=== PATIENT | male | born 1940 | race Caucasian/White ===

== ENCOUNTER 2021-03-08 14:01 | Inpatient (IN) | payer MEDICARE ==
[2021-03-08 15:06] LABS: INR 1.14; PROTHROMBIN TIME 14.8 seconds (11.9-14.5)
[2021-03-08 15:13] LABS: BASOPHILS # (AUTO) 0.1 (0.0-0.1); BASOPHILS % 0.4 % (0.0-1.0); EOSINOPHILS # (AUTO) 0.6 (0.0-0.4); EOSINOPHILS % 4.5 % (0.0-6.0); HEMATOCRIT 31.4 % (38.2-49.6); HEMOGLOBIN 9.5 g/dL (14.0-18.0); LYMPHOCYTES % 7.6 % (18.0-39.1); MEAN CORPUSCULAR HEMOGLOBIN 29.1 pg (28-32); MEAN CORPUSCULAR HGB CONC 30.3 g/dL (31-35); MEAN CORPUSCULAR VOLUME 96.3 fL (81-99); MONOCYTES # (AUTO) 0.6 (0.2-0.8); MONOCYTES % 4.8 % (4.4-11.3); NEUTROPHILS # (AUTO) 10.5 (2.1-6.9); PLATELET COUNT 184 x10e3/uL (140-360); RED BLOOD COUNT 3.26 x10e6/uL (4.3-5.7); RED CELL DISTRIBUTION WIDTH 16.3 % (11.7-14.4)
[2021-03-08 15:16] LABS: ALBUMIN 2.5 g/dL (3.5-5.0); ALBUMIN/GLOBULIN RATIO 0.8 (0.8-2.0); ANION GAP 13.8 mmol/L (8-16); CALCIUM 7.5 mg/dL (8.4-10.2); CREATININE, SERUM 4.48 mg/dL (0.72-1.25)
[2021-03-08 15:18] LABS: POTASSIUM 2.8 mmol/L (3.5-5.1)
[2021-03-08 20:35] LABS: CREATINE KINASE MB 1.2 ng/mL (0-5.0)
[2021-03-09] VITALS (12 sets, daily range): BP systolic 117–130; BP diastolic 56–68
[2021-03-09] MEDS ORDERED: POTASSIUM CHLORIDE 20MEQ/100ML 100 ML IV ONE (00:15)
[2021-03-09 07:15] LABS: ALBUMIN 2.3 g/dL (3.5-5.0); ALBUMIN/GLOBULIN RATIO 0.8 (0.8-2.0); CALCIUM 7.2 mg/dL (8.4-10.2)
[2021-03-09 07:31] LABS: CREATINE KINASE MB 1.1 ng/mL (0-5.0)
[2021-03-09] MEDS ORDERED: SODIUM CHLORIDE 0.9% 1000ML 2,000 ML ONE (09:03)
[2021-03-09 09:38] LABS: BASOPHILS % 0.4 % (0.0-1.0); EOSINOPHILS # (AUTO) 0.7 (0.0-0.4); EOSINOPHILS % 6.1 % (0.0-6.0); HEMATOCRIT 31.6 % (38.2-49.6); HEMOGLOBIN 9.7 g/dL (14.0-18.0); LYMPHOCYTES # (AUTO) 0.8 (1.0-3.2); LYMPHOCYTES % 6.6 % (18.0-39.1); MEAN CORPUSCULAR HEMOGLOBIN 28.9 pg (28-32); MEAN CORPUSCULAR HGB CONC 30.7 g/dL (31-35); MONOCYTES # (AUTO) 0.6 (0.2-0.8); MONOCYTES % 5.2 % (4.4-11.3); NEUTROPHILS # (AUTO) 9.2 (2.1-6.9); PLATELET COUNT 178 x10e3/uL (140-360); RED BLOOD COUNT 3.36 x10e6/uL (4.3-5.7); RED CELL DISTRIBUTION WIDTH 16.2 % (11.7-14.4)
[2021-03-09] MEDS ORDERED: MIDODRINE HCL 5 MG TABLET PO ONE (11:30)
[2021-03-09 14:46] LABS: CREATINE KINASE MB 1.2 ng/mL (0-5.0)
[2021-03-09] MEDS: CEFTRIAXONE 1 GM in SODIUM CHLORIDE 0.9% 50ML 50 ML IV SCH (16:56)
[2021-03-09 17:28] LABS: BODY FLUID APPEARANCE SL.CLOUDY; BODY FLUID COLOR YELLOW; BODY FLUID TYPE PLEURAL; RBC,BODY FLUID < 2000 cells/uL; WBC,BODY FLUID 300 cells/uL
[2021-03-09 18:33] LABS: EOSINOPHILS,BODY FLUID 6 %; LYMPHOCYTES,BODY FLUID 22 %; MONO/MACROPHG,BODY FLUID 32 %; NEUTROPHILS,BODY FLUID 29 %; OTHER CELLS,BODY FLUID 11 %
[2021-03-10] VITALS (8 sets, daily range): BP systolic 118–141; BP diastolic 44–77
[2021-03-10 06:26] LABS: BASOPHILS % 0.4 % (0.0-1.0); EOSINOPHILS # (AUTO) 0.6 (0.0-0.4); HEMATOCRIT 27.5 % (38.2-49.6); HEMOGLOBIN 8.5 g/dL (14.0-18.0); LYMPHOCYTES % 9.4 % (18.0-39.1); MEAN CORPUSCULAR HGB CONC 30.9 g/dL (31-35); MEAN CORPUSCULAR VOLUME 93.9 fL (81-99); MONOCYTES # (AUTO) 0.9 (0.2-0.8); MONOCYTES % 7.7 % (4.4-11.3); NEUTROPHILS # (AUTO) 8.5 (2.1-6.9); NEUTROPHILS % 76.9 % (38.7-80.0); PLATELET COUNT 182 x10e3/uL (140-360); RED BLOOD COUNT 2.93 x10e6/uL (4.3-5.7); RED CELL DISTRIBUTION WIDTH 15.8 % (11.7-14.4)
[2021-03-10 06:42] LABS: ANION GAP 12.1 mmol/L (8-16); CREATININE, SERUM 3.19 mg/dL (0.72-1.25); POTASSIUM 3.1 mmol/L (3.5-5.1)
[2021-03-10 06:55] LABS: CALCIUM 6.8 mg/dL (8.4-10.2)
[2021-03-10] MEDS: CEFTRIAXONE 1 GM in SODIUM CHLORIDE 0.9% 50ML 50 ML IV SCH (09:08)
[2021-03-10 11:15] LABS: % IRON SATURATION 18 % (15-50); IRON 23 ug/dL (65-175); TOTAL IRON BINDING CAPACITY 129 ug/dL (261-478); TRANSFERRIN 92 mg/dL (174-364)
[2021-03-10] MEDS: ALBUTEROL/IPRATROPIUM 3 ML NEB NEB SCH ×2 (13:55→18:56)
[2021-03-10] MEDS: BALSAM PERU/CASTOR OIL 60 GM OINT...G. TP SCH (16:12)
[2021-03-10] MEDS ORDERED: POTASSIUM CHLORIDE 20 MEQ TAB CR PO STA ×2 (18:06→22:03)
[2021-03-10] MEDS ORDERED: CALCIUM GLUCONATE 10% INJ 4.65 MEQ in SODIUM CHLORIDE 0.9% 50ML 50 ML IV ONE ×2 (18:15→22:15)
[2021-03-10] MEDS ORDERED: POTASSIUM CHLORIDE 20 MEQ TAB CR PO ONE (22:09)
[2021-03-10] MEDS ORDERED: CALCIUM GLUCONATE 10% INJ 0.465 MEQ/ML VIAL ONE (22:25)
[2021-03-10] MEDS ORDERED: SODIUM CHLORIDE 0.9% 50ML 50 ML ONE (22:25)
[2021-03-11] VITALS (10 sets, daily range): BP systolic 105–149; BP diastolic 44–61
[2021-03-11] MEDS: ALBUTEROL/IPRATROPIUM 3 ML NEB NEB SCH ×5 (03:55→19:42)
[2021-03-11 06:41] LABS: BASOPHILS % 0.2 % (0.0-1.0); EOSINOPHILS # (AUTO) 0.4 (0.0-0.4); EOSINOPHILS % 4.1 % (0.0-6.0); HEMATOCRIT 29.3 % (38.2-49.6); HEMOGLOBIN 9.3 g/dL (14.0-18.0); LYMPHOCYTES # (AUTO) 0.8 (1.0-3.2); LYMPHOCYTES % 7.6 % (18.0-39.1); MEAN CORPUSCULAR HEMOGLOBIN 30.3 pg (28-32); MEAN CORPUSCULAR HGB CONC 31.7 g/dL (31-35); MEAN CORPUSCULAR VOLUME 95.4 fL (81-99); MONOCYTES # (AUTO) 0.8 (0.2-0.8); MONOCYTES % 8.4 % (4.4-11.3); NEUTROPHILS # (AUTO) 7.9 (2.1-6.9); PLATELET COUNT 144 x10e3/uL (140-360); RED BLOOD COUNT 3.07 x10e6/uL (4.3-5.7); RED CELL DISTRIBUTION WIDTH 15.9 % (11.7-14.4)
[2021-03-11 07:39] LABS: ANION GAP 13.1 mmol/L (8-16); CALCIUM 7.2 mg/dL (8.4-10.2); CREATININE, SERUM 4.26 mg/dL (0.72-1.25); POTASSIUM 3.1 mmol/L (3.5-5.1)
[2021-03-11] MEDS: BALSAM PERU/CASTOR OIL 60 GM OINT...G. TP SCH (09:31)
[2021-03-11] MEDS: CEFTRIAXONE 1 GM in SODIUM CHLORIDE 0.9% 50ML 50 ML IV SCH (09:32)
[2021-03-11] MEDS ORDERED: SODIUM CHLORIDE 0.9% 250ML 250 ML ONE (09:50)
[2021-03-11] MEDS ORDERED: POTASSIUM CHLORIDE 10MEQ EA PO ONE (18:30)
[2021-03-12] VITALS (9 sets, daily range): BP systolic 111–146; BP diastolic 51–75
[2021-03-12] MEDS: ALBUTEROL/IPRATROPIUM 3 ML NEB NEB SCH ×5 (00:48→21:00)
[2021-03-12 06:19] LABS: ANION GAP 13.5 mmol/L (8-16); CREATININE, SERUM 5.19 mg/dL (0.72-1.25); POTASSIUM 3.5 mmol/L (3.5-5.1)
[2021-03-12 06:22] LABS: CALCIUM 6.9 mg/dL (8.4-10.2)
[2021-03-12] MEDS ORDERED: CALCIUM GLUCONATE 10% INJ 4.65 MEQ in SODIUM CHLORIDE 0.9% 50ML 50 ML IV ONE (11:00)
[2021-03-12] MEDS: BALSAM PERU/CASTOR OIL 60 GM OINT...G. TP SCH (12:20)
[2021-03-12] MEDS: CEFTRIAXONE 1 GM in SODIUM CHLORIDE 0.9% 50ML 50 ML IV SCH (12:49)
[2021-03-12 20:32] LABS: BODY FLUID APPEARANCE SL.CLOUDY; BODY FLUID COLOR YELLOW; BODY FLUID TYPE PLEURAL
[2021-03-12 20:33] LABS: RBC,BODY FLUID < 2000 cells/uL; WBC,BODY FLUID 313 cells/uL
[2021-03-12 21:37] LABS: EOSINOPHILS,BODY FLUID 13 %; LYMPHOCYTES,BODY FLUID 49 %; MONO/MACROPHG,BODY FLUID 22 %; NEUTROPHILS,BODY FLUID 16 %
[2021-03-12] MEDS ORDERED: MIRTAZAPINE7.5 MG PO (23:15)
[2021-03-12] MEDS ORDERED: POTASSIUM CHLO10 ME1 PO (23:15)
[2021-03-12] MEDS ORDERED: DOCUSATE SODIU100 MG PO (23:15)
[2021-03-12] MEDS ORDERED: ULTRAM50 MG PO (23:15)
[2021-03-12] MEDS ORDERED: TYLENOL325 MG PO (23:15)
[2021-03-12] MEDS ORDERED: CALCIUM 600 +1 EACH (23:15)
[2021-03-12] MEDS ORDERED: HYDRALAZINE HCL50 MG PO (23:15)
[2021-03-12] MEDS ORDERED: ATORVASTATIN CA20 MG PO (23:15)
[2021-03-12] MEDS ORDERED: ACIDOPHILUS CA1 EAC1 (23:15)
[2021-03-12] MEDS ORDERED: LANTUS 3ML100 UNITS/ (23:15)
[2021-03-12] MEDS ORDERED: ELIQUIS2.5 MG PO (23:15)
[2021-03-12] MEDS ORDERED: TUMS300 MG (23:15)
[2021-03-12] MEDS ORDERED: LISINOPRIL10 MG PO (23:15)
[2021-03-12] MEDS ORDERED: DORZOLAMIDE-TIM10 ML OP (23:15)
[2021-03-12] MEDS ORDERED: MIDODRINE HCL5 MG PO (23:15)
[2021-03-12] MEDS ORDERED: FLONASE ALLERG9.9 ML INH (23:15)
[2021-03-12] MEDS ORDERED: SYNTHROID100 MCG PO (23:15)
[2021-03-12] MEDS ORDERED: BENEPROTEIN1 EACH (23:15)
[2021-03-12] MEDS ORDERED: LACTULOSE20 GM/30 M PO (23:15)
[2021-03-12] MEDS ORDERED: ARTIFICIAL TEAR15 ML OU (23:15)
[2021-03-12] MEDS ORDERED: TIMOPTIC 0.25%1 EACH OS (23:15)
[2021-03-12] MEDS ORDERED: RENAL-VITE TAB0.8 MG (23:15)
[2021-03-12] MEDS ORDERED: FLOMAX0.4 MG PO (23:15)
[2021-03-12] MEDS ORDERED: TRADJENTA5 MG (23:17)
[2021-03-12] MEDS ORDERED: LIDOCAINE OINTMENT (23:32)
[2021-03-12] MEDS ORDERED: [UNRECOGNIZED DRUG - OTHER] (23:32)
[2021-03-12] MEDS ORDERED: HUMALOG (23:32)
[2021-03-12] MEDS ORDERED: PROTEIN SUPPLEMENT (23:32)
[2021-03-13] VITALS: BP 95/60
[2021-03-13] MEDS: ACETAMINOPHEN 325 MG TAB PO PRN (00:49)
[2021-03-13] MEDS: ALBUTEROL/IPRATROPIUM 3 ML NEB NEB SCH ×4 (01:00→19:08)
[2021-03-13] MEDS ORDERED: LIQUACEL LIQUI960 ML (01:31)
[2021-03-13] MEDS ORDERED: RENA-VITE TABL0.8 MG (02:44)
[2021-03-13] MEDS ORDERED: GLUCAGON EMERGEN1 M1 (02:44)
[2021-03-13 04:00] VITALS: BP 102/60
[2021-03-13 08:54] VITALS: BP 112/64
[2021-03-13 09:18] LABS: ANION GAP 11.5 mmol/L (8-16); CALCIUM 7.1 mg/dL (8.4-10.2); CREATININE, SERUM 3.24 mg/dL (0.72-1.25); POTASSIUM 3.5 mmol/L (3.5-5.1)
[2021-03-13] MEDS: BALSAM PERU/CASTOR OIL 60 GM OINT...G. TP SCH (09:25)
[2021-03-13] MEDS: HEPARIN SOD (PORCINE) 5,000 UNIT/ML VIAL SC SCH ×2 (10:50→20:26)
[2021-03-13] MEDS: CEFTRIAXONE 1 GM in SODIUM CHLORIDE 0.9% 50ML 50 ML IV SCH (10:50)
[2021-03-13] MEDS ORDERED: ALBUTEROL/IPRATROPIUM 3 ML NEB ONE (19:06)
[2021-03-13 19:40] VITALS: BP 108/66
[2021-03-13 23:26] VITALS: BP 108/66
[2021-03-14 00:32] VITALS: BP 142/79
[2021-03-14] MEDS: ALBUTEROL/IPRATROPIUM 3 ML NEB NEB SCH ×4 (01:10→19:50)
[2021-03-14 04:00] VITALS: BP 108/73
[2021-03-14 06:56] LABS: ANION GAP 15.5 mmol/L (8-16); CALCIUM 7.2 mg/dL (8.4-10.2); CREATININE, SERUM 4.38 mg/dL (0.72-1.25); POTASSIUM 3.5 mmol/L (3.5-5.1)
[2021-03-14 08:00] VITALS: BP 117/71
[2021-03-14] MEDS ORDERED: IRON SUCROSE 100 MG in SODIUM CHLORIDE 0.9% 100 ML 100 ML IV ONE (08:00)
[2021-03-14] MEDS: CEFTRIAXONE 1 GM in SODIUM CHLORIDE 0.9% 50ML 50 ML IV SCH (09:12)
[2021-03-14] MEDS: BALSAM PERU/CASTOR OIL 60 GM OINT...G. TP SCH (09:15)
[2021-03-14] MEDS: HEPARIN SOD (PORCINE) 5,000 UNIT/ML VIAL SC SCH (09:15)
[2021-03-14] MEDS ORDERED: EPOETIN ALFA-EPBX 10,000 UNIT/ML VIAL SC ONE (10:00)
[2021-03-14 11:30] VITALS: BP 118/59
[2021-03-14] MEDS ORDERED: SODIUM CHLORIDE 0.9% 1000ML 1,000 ML ONE (13:35)
[2021-03-14 16:00] VITALS: BP 103/60
[2021-03-14] MEDS ORDERED: APIXAB 2.5 MG TABLET PO SCH (17:00)
[2021-03-14 20:13] VITALS: BP 122/43
[2021-03-14] MEDS: ATORVASTATIN 20 MG TAB PO SCH (20:45)
[2021-03-15] VITALS (9 sets, daily range): BP systolic 107–130; BP diastolic 52–68
[2021-03-15] MEDS: ALBUTEROL/IPRATROPIUM 3 ML NEB NEB SCH ×6 (01:30→20:00)
[2021-03-15] MEDS: ACETAMINOPHEN 325 MG TAB PO PRN (02:36)
[2021-03-15 05:26] LABS: BASOPHILS % 0.4 % (0.0-1.0); EOSINOPHILS # (AUTO) 0.5 (0.0-0.4); LYMPHOCYTES # (AUTO) 0.8 (1.0-3.2); LYMPHOCYTES % 10.3 % (18.0-39.1); MEAN CORPUSCULAR HEMOGLOBIN 28.8 pg (28-32); MEAN CORPUSCULAR VOLUME 95.8 fL (81-99); MONOCYTES # (AUTO) 0.7 (0.2-0.8); MONOCYTES % 9.3 % (4.4-11.3); NEUTROPHILS # (AUTO) 5.3 (2.1-6.9); NEUTROPHILS % 72.5 % (38.7-80.0); PLATELET COUNT 137 x10e3/uL (140-360); RED BLOOD COUNT 3.13 x10e6/uL (4.3-5.7); RED CELL DISTRIBUTION WIDTH 15.5 % (11.7-14.4)
[2021-03-15] MEDS: LEVOTHYROXINE SODIUM 100 MCG TAB PO SCH (05:33)
[2021-03-15 05:46] LABS: ALBUMIN 2.2 g/dL (3.5-5.0); ALBUMIN/GLOBULIN RATIO 0.6 (0.8-2.0); ANION GAP 12.9 mmol/L (8-16); CALCIUM 7.2 mg/dL (8.4-10.2); CHOL/HDL RATIO 3.5 (3.9-4.7); CREATININE, SERUM 3.27 mg/dL (0.72-1.25)
[2021-03-15 05:48] LABS: POTASSIUM 2.9 mmol/L (3.5-5.1)
[2021-03-15 06:12] LABS: THYROID STIMULATING HORMONE 0.42 uIU/mL (0.350-4.940)
[2021-03-15] MEDS ORDERED: POTASSIUM CHLORIDE 20MEQ/100ML 200 ML IV ONE ×2 (06:15→06:45)
[2021-03-15] MEDS ORDERED: SODIUM CHLORIDE 0.9% 1000ML 1,000 ML ONE (07:32)
[2021-03-15] MEDS: BALSAM PERU/CASTOR OIL 60 GM OINT...G. TP SCH (11:17)
[2021-03-15] MEDS: CEFTRIAXONE 1 GM in SODIUM CHLORIDE 0.9% 50ML 50 ML IV SCH (11:17)
[2021-03-15] MEDS: ATORVASTATIN 20 MG TAB PO SCH (22:08)
[2021-03-16] VITALS: BP 125/58
[2021-03-16] MEDS: ALBUTEROL/IPRATROPIUM 3 ML NEB NEB SCH ×6 (01:20→18:50)
[2021-03-16 04:00] VITALS: BP 96/60
[2021-03-16 04:54] LABS: BASOPHILS % 0.6 % (0.0-1.0); EOSINOPHILS # (AUTO) 0.5 (0.0-0.4); EOSINOPHILS % 6.7 % (0.0-6.0); HEMATOCRIT 28.8 % (38.2-49.6); HEMOGLOBIN 8.6 g/dL (14.0-18.0); LYMPHOCYTES # (AUTO) 0.8 (1.0-3.2); LYMPHOCYTES % 11.6 % (18.0-39.1); MEAN CORPUSCULAR HEMOGLOBIN 28.9 pg (28-32); MEAN CORPUSCULAR HGB CONC 29.9 g/dL (31-35); MEAN CORPUSCULAR VOLUME 96.6 fL (81-99); MONOCYTES # (AUTO) 0.6 (0.2-0.8); NEUTROPHILS # (AUTO) 5.3 (2.1-6.9); NEUTROPHILS % 72.3 % (38.7-80.0); PLATELET COUNT 154 x10e3/uL (140-360); RED BLOOD COUNT 2.98 x10e6/uL (4.3-5.7)
[2021-03-16 05:20] LABS: ANION GAP 13.8 mmol/L (8-16); CALCIUM 7.2 mg/dL (8.4-10.2); CREATININE, SERUM 4.34 mg/dL (0.72-1.25)
[2021-03-16 05:27] LABS: POTASSIUM 2.8 mmol/L (3.5-5.1)
[2021-03-16] MEDS: POTASSIUM CHLORIDE 20MEQ/100ML 100 ML IV SCH ×2 (05:59→11:44)
[2021-03-16] MEDS: LEVOTHYROXINE SODIUM 100 MCG TAB PO SCH (06:05)
[2021-03-16 08:53] VITALS: BP 123/52
[2021-03-16] MEDS ORDERED: SODIUM CHLORIDE 0.9% 1000ML 1,000 ML ONE (09:37)
[2021-03-16] MEDS ORDERED: SODIUM CHLORIDE 0.9% 1000ML 2,000 ML IV PRN (10:00)
[2021-03-16] MEDS ORDERED: LIDOCAINE HCL 2% JELLY 5 ML TUBE ONE (10:50)
[2021-03-16] MEDS ORDERED: LIDOCAINE HCL 4% 50 ML BTL ONE (10:50)
[2021-03-16] MEDS: BALSAM PERU/CASTOR OIL 60 GM OINT...G. TP SCH (11:45)
[2021-03-16 11:54] VITALS: BP 128/57
[2021-03-16] MEDS ORDERED: EPOETIN ALFA-EPBX 10,000 UNIT/ML VIAL SC ONE ×2 (12:00→15:15)
[2021-03-16] MEDS ORDERED: IRON SUCROSE 100 MG in SODIUM CHLORIDE 0.9% 100 ML 100 ML IV ONE ×2 (12:00→15:15)
[2021-03-16] MEDS: ACETAMINOPHEN 325 MG TAB PO PRN (13:40)
[2021-03-16] MEDS: CEFTRIAXONE 1 GM in SODIUM CHLORIDE 0.9% 50ML 50 ML IV SCH (14:30)
[2021-03-16 17:05] VITALS: BP 117/54
[2021-03-16] MEDS: APIXAB 2.5 MG TABLET PO SCH (17:30)
[2021-03-16 20:00] VITALS: BP 124/98
[2021-03-16] MEDS: ATORVASTATIN 20 MG TAB PO SCH (21:17)
[2021-03-17] VITALS (8 sets, daily range): BP systolic 117–149; BP diastolic 51–91
[2021-03-17] MEDS: ALBUTEROL/IPRATROPIUM 3 ML NEB NEB SCH ×4 (00:10→19:00)
[2021-03-17] MEDS: LEVOTHYROXINE SODIUM 100 MCG TAB PO SCH (06:13)
[2021-03-17 06:40] LABS: BASOPHILS % 0.6 % (0.0-1.0); EOSINOPHILS # (AUTO) 0.4 (0.0-0.4); EOSINOPHILS % 5.1 % (0.0-6.0); HEMATOCRIT 27.9 % (38.2-49.6); HEMOGLOBIN 8.6 g/dL (14.0-18.0); LYMPHOCYTES # (AUTO) 0.7 (1.0-3.2); LYMPHOCYTES % 10.4 % (18.0-39.1); MEAN CORPUSCULAR HEMOGLOBIN 29.6 pg (28-32); MEAN CORPUSCULAR HGB CONC 30.8 g/dL (31-35); MEAN CORPUSCULAR VOLUME 95.9 fL (81-99); MONOCYTES # (AUTO) 0.5 (0.2-0.8); MONOCYTES % 7.2 % (4.4-11.3); NEUTROPHILS # (AUTO) 5.4 (2.1-6.9); PLATELET COUNT 141 x10e3/uL (140-360); RED BLOOD COUNT 2.91 x10e6/uL (4.3-5.7); RED CELL DISTRIBUTION WIDTH 15.1 % (11.7-14.4)
[2021-03-17 07:09] LABS: ALBUMIN 2.2 g/dL (3.5-5.0); ANION GAP 12.6 mmol/L (8-16); CALCIUM 7.1 mg/dL (8.4-10.2); CREATININE, SERUM 3.06 mg/dL (0.72-1.25); POTASSIUM 3.6 mmol/L (3.5-5.1)
[2021-03-17 07:10] LABS: ALBUMIN/GLOBULIN RATIO 0.7 (0.8-2.0)
[2021-03-17] MEDS: APIXAB 2.5 MG TABLET PO SCH (10:42)
[2021-03-17] MEDS: CEFTRIAXONE 1 GM in SODIUM CHLORIDE 0.9% 50ML 50 ML IV SCH (10:42)
[2021-03-17] MEDS: OYST-CAL-D 500MG TABLET PO SCH (10:42)
[2021-03-17] MEDS: BALSAM PERU/CASTOR OIL 60 GM OINT...G. TP SCH (17:02)
[2021-03-17] MEDS: ATORVASTATIN 20 MG TAB PO SCH (22:02)
[2021-03-17] MEDS: ACETAMINOPHEN 325 MG TAB PO PRN (22:04)
[2021-03-18] VITALS (8 sets, daily range): BP systolic 107–131; BP diastolic 52–96
[2021-03-18] MEDS: LEVOTHYROXINE SODIUM 100 MCG TAB PO SCH (06:37)
[2021-03-18] MEDS: ALBUTEROL/IPRATROPIUM 3 ML NEB NEB SCH ×4 (06:52→19:29)
[2021-03-18 07:12] LABS: ANION GAP 14.2 mmol/L (8-16); CALCIUM 7.1 mg/dL (8.4-10.2); CREATININE, SERUM 4.07 mg/dL (0.72-1.25); POTASSIUM 3.2 mmol/L (3.5-5.1)
[2021-03-18] MEDS ORDERED: IRON SUCROSE 100 MG in SODIUM CHLORIDE 0.9% 100 ML 100 ML IV ONE (09:00)
[2021-03-18] MEDS: OYST-CAL-D 500MG TABLET PO SCH (09:12)
[2021-03-18] MEDS: CHOLECALCIFEROL 400 UNIT TAB PO SCH (09:12)
[2021-03-18] MEDS: CEFTRIAXONE 1 GM in SODIUM CHLORIDE 0.9% 50ML 50 ML IV SCH (09:16)
[2021-03-18] MEDS: BALSAM PERU/CASTOR OIL 60 GM OINT...G. TP SCH (13:16)
[2021-03-18] MEDS: ACETAMINOPHEN 325 MG TAB PO PRN (13:55)
[2021-03-18] MEDS ORDERED: POTASSIUM CHLORIDE 10MEQ EA PO ONE (19:15)
[2021-03-18] MEDS ORDERED: POTASSIUM CHLORIDE 20MEQ/100ML 100 ML IV ONE (20:00)
[2021-03-18] MEDS ORDERED: LACTULOSE SYRUP 20 GM/30 ML UDC PO PRN (20:00)
[2021-03-18] MEDS: ATORVASTATIN 20 MG TAB PO SCH (20:57)
[2021-03-18] MEDS ORDERED: MAGNESIUM HYDROXIDE 30 ML UDC PO PRN (21:00)
[2021-03-18] MEDS ORDERED: SODIUM CHLORIDE 0.9% 0 ML ONE (21:06)
[2021-03-19] VITALS (8 sets, daily range): BP systolic 115–147; BP diastolic 51–80
[2021-03-19] MEDS: IPRATROPIUM BROMIDE 0.02% 2.5 ML NEB NEB SCH ×4 (00:40→19:13)
[2021-03-19] MEDS: LEVOTHYROXINE SODIUM 100 MCG TAB PO SCH (04:51)
[2021-03-19 06:49] LABS: ANION GAP 14.4 mmol/L (8-16); CALCIUM 7.1 mg/dL (8.4-10.2); CREATININE, SERUM 4.96 mg/dL (0.72-1.25); POTASSIUM 3.4 mmol/L (3.5-5.1)
[2021-03-19] MEDS: OYST-CAL-D 500MG TABLET PO SCH (09:00)
[2021-03-19] MEDS: CHOLECALCIFEROL 400 UNIT TAB PO SCH (09:00)
[2021-03-19] MEDS ORDERED: OXYMETAZOLINE HCL 0.05% NAS 1 SPRAY BTL ONE (09:31)
[2021-03-19] MEDS ORDERED: LIDOCAINE HCL 4% 50 ML BTL ONE (09:31)
[2021-03-19] MEDS ORDERED: ACETYLCYSTEINE 200 MG/ML 4ML VIAL ONE (09:52)
[2021-03-19] MEDS ORDERED: LIDOCAINE HCL 2% LOCAL INJ 5 ML SDV VIAL INJ ONE (13:05)
[2021-03-19] MEDS ORDERED: ONDANSETRON HCL INJ 2MG/ML 2ML 2 MG/ML VIAL ONE (13:05)
[2021-03-19] MEDS ORDERED: SUCCINYLCHOLINE CHLORIDE 20 MG/ML 10ML VIAL ONE (13:05)
[2021-03-19] MEDS ORDERED: POVIDONE IODINE 0.05% 0.05 % ML PO ONE (13:05)
[2021-03-19] MEDS ORDERED: SEVOFLURANE INHAL SOLN 250 ML PEN BTL ONE (13:05)
[2021-03-19] MEDS ORDERED: PROPOFOL IV EMULSION 10 MG/ML 20 ML VIAL ONE (13:05)
[2021-03-19] MEDS ORDERED: EPOETIN ALFA-EPBX 10,000 UNIT/ML VIAL SC ONE (13:30)
[2021-03-19] MEDS: BALSAM PERU/CASTOR OIL 60 GM OINT...G. TP SCH (13:48)
[2021-03-19 14:57] LABS: BODY FLUID APPEARANCE CLEAR; BODY FLUID COLOR COLORLESS; BODY FLUID TYPE RLL BRONCH WASH
[2021-03-19 15:16] LABS: WBC,BODY FLUID 1146 cells/uL
[2021-03-19 15:17] LABS: RBC,BODY FLUID 1000 cells/uL
[2021-03-19] MEDS: MAGNESIUM HYDROXIDE 30 ML UDC PO SCH (17:53)
[2021-03-19] MEDS: APIXAB 2.5 MG TABLET PO SCH (17:53)
[2021-03-19] MEDS: CALCIUM GLUCONATE 10% INJ 4.65 MEQ in SODIUM CHLORIDE 0.9% 50ML 50 ML IV ONE ×2 (17:53→18:29)
[2021-03-19 18:56] LABS: EOSINOPHILS,BODY FLUID 15 %; LYMPHOCYTES,BODY FLUID 4 %; MONO/MACROPHG,BODY FLUID 3 %; NEUTROPHILS,BODY FLUID 73 %; OTHER CELLS,BODY FLUID 5 %
[2021-03-19] MEDS: ATORVASTATIN 20 MG TAB PO SCH (20:54)
[2021-03-19] MEDS: ACETAMINOPHEN 325 MG TAB PO PRN (20:55)
[2021-03-20] VITALS (7 sets, daily range): BP systolic 97–149; BP diastolic 47–87
[2021-03-20] MEDS ORDERED: LUBIPROSTONE 24 MCG CAP PO STA (02:43)
[2021-03-20] MEDS: LEVOTHYROXINE SODIUM 100 MCG TAB PO SCH (05:28)
[2021-03-20 06:02] LABS: BASOPHILS % 0.4 % (0.0-1.0); EOSINOPHILS # (AUTO) 0.5 (0.0-0.4); EOSINOPHILS % 5.2 % (0.0-6.0); HEMATOCRIT 30.4 % (38.2-49.6); HEMOGLOBIN 9.2 g/dL (14.0-18.0); LYMPHOCYTES # (AUTO) 0.7 (1.0-3.2); LYMPHOCYTES % 6.9 % (18.0-39.1); MEAN CORPUSCULAR HGB CONC 30.3 g/dL (31-35); MEAN CORPUSCULAR VOLUME 95.9 fL (81-99); MONOCYTES # (AUTO) 0.5 (0.2-0.8); MONOCYTES % 4.7 % (4.4-11.3); NEUTROPHILS # (AUTO) 7.9 (2.1-6.9); NEUTROPHILS % 82.1 % (38.7-80.0); PLATELET COUNT 169 x10e3/uL (140-360); RED BLOOD COUNT 3.17 x10e6/uL (4.3-5.7)
[2021-03-20 06:41] LABS: ANION GAP 15.5 mmol/L (8-16); CALCIUM 7.3 mg/dL (8.4-10.2); CREATININE, SERUM 2.8 mg/dL (0.72-1.25); POTASSIUM 3.5 mmol/L (3.5-5.1)
[2021-03-20] MEDS: IPRATROPIUM BROMIDE 0.02% 2.5 ML NEB NEB SCH ×3 (06:52→19:49)
[2021-03-20] MEDS: ACETAMINOPHEN 325 MG TAB PO PRN (07:39)
[2021-03-20] MEDS: APIXAB 2.5 MG TABLET PO SCH ×2 (09:18→16:10)
[2021-03-20] MEDS: CHOLECALCIFEROL 400 UNIT TAB PO SCH (09:18)
[2021-03-20] MEDS: OYST-CAL-D 500MG TABLET PO SCH (09:18)
[2021-03-20] MEDS: LUBIPROSTONE 24 MCG CAP PO SCH ×2 (09:18→17:33)
[2021-03-20] MEDS: BALSAM PERU/CASTOR OIL 60 GM OINT...G. TP SCH (09:18)
[2021-03-20] MEDS: MAGNESIUM HYDROXIDE 30 ML UDC PO SCH (09:18)
[2021-03-20] MEDS: HYDROCORTISONE ACETATE 25 MG/SUPP.RECT SUPP RC SCH ×3 (09:18→16:09)
[2021-03-20] MEDS ORDERED: CALCIUM GLUCONATE 10% INJ 4.65 MEQ in SODIUM CHLORIDE 0.9% 50ML 50 ML IV ONE (14:45)
[2021-03-20] MEDS ORDERED: BISACODYL 10 MG SUPP PR NR (15:45)
[2021-03-20] MEDS ORDERED: EPOETIN ALFA-EPBX 10,000 UNIT/ML VIAL SC ONE (18:00)
[2021-03-20] MEDS: ATORVASTATIN 20 MG TAB PO SCH (22:30)
[2021-03-21] VITALS: BP 123/53
[2021-03-21] MEDS ORDERED: BISACODYL 10 MG SUPP PR ONE (00:30)
[2021-03-21] MEDS ORDERED: MAGNESIUM HYDROXIDE 30 ML UDC PO ONE ×2 (01:45→09:00)
[2021-03-21] MEDS ORDERED: BISACODYL 5 MG TAB EC PO ONE ×2 (02:15→09:00)
[2021-03-21 02:41] VITALS: BP 113/61
[2021-03-21 05:05] LABS: BASOPHILS # (AUTO) 0.1 (0.0-0.1); BASOPHILS % 0.5 % (0.0-1.0); EOSINOPHILS # (AUTO) 0.5 (0.0-0.4); EOSINOPHILS % 3.8 % (0.0-6.0); HEMATOCRIT 29.3 % (38.2-49.6); LYMPHOCYTES # (AUTO) 0.9 (1.0-3.2); LYMPHOCYTES % 6.5 % (18.0-39.1); MEAN CORPUSCULAR HEMOGLOBIN 29.1 pg (28-32); MEAN CORPUSCULAR HGB CONC 30.7 g/dL (31-35); MEAN CORPUSCULAR VOLUME 94.8 fL (81-99); MONOCYTES # (AUTO) 0.8 (0.2-0.8); MONOCYTES % 5.9 % (4.4-11.3); NEUTROPHILS # (AUTO) 11.4 (2.1-6.9); NEUTROPHILS % 82.5 % (38.7-80.0); PLATELET COUNT 217 x10e3/uL (140-360); RED BLOOD COUNT 3.09 x10e6/uL (4.3-5.7); RED CELL DISTRIBUTION WIDTH 15.5 % (11.7-14.4)
[2021-03-21 05:30] LABS: ANION GAP 12.7 mmol/L (8-16); CALCIUM 7.6 mg/dL (8.4-10.2); CREATININE, SERUM 3.86 mg/dL (0.72-1.25)
[2021-03-21 05:39] LABS: POTASSIUM 2.7 mmol/L (3.5-5.1)
[2021-03-21 05:43] VITALS: BP 122/47
[2021-03-21] MEDS ORDERED: POTASSIUM CHLORIDE 20MEQ/100ML 100 ML IV STA (05:54)
[2021-03-21] MEDS: LEVOTHYROXINE SODIUM 100 MCG TAB PO SCH (06:10)
[2021-03-21] MEDS: IPRATROPIUM BROMIDE 0.02% 2.5 ML NEB NEB SCH ×3 (06:20→18:47)
[2021-03-21] MEDS ORDERED: POTASSIUM CHLORIDE 20MEQ/100ML 200 ML IV ONE (06:30)
[2021-03-21] MEDS ORDERED: POTASSIUM CHLORIDE 20MEQ/100ML 100 ML IV ONE (06:30)
[2021-03-21] MEDS: POTASSIUM CHLORIDE 20MEQ/100ML 100 ML IV SCH ×2 (07:41→08:58)
[2021-03-21] MEDS: OYST-CAL-D 500MG TABLET PO SCH (09:00)
[2021-03-21] MEDS: MAGNESIUM HYDROXIDE 30 ML UDC PO SCH (09:00)
[2021-03-21] MEDS: APIXAB 2.5 MG TABLET PO SCH (09:00)
[2021-03-21] MEDS: HYDROCORTISONE ACETATE 25 MG/SUPP.RECT SUPP RC SCH ×2 (09:00→16:58)
[2021-03-21] MEDS: CHOLECALCIFEROL 400 UNIT TAB PO SCH (09:00)
[2021-03-21] MEDS: LUBIPROSTONE 24 MCG CAP PO SCH ×2 (09:00→16:35)
[2021-03-21] MEDS ORDERED: IRON SUCROSE 100 MG in SODIUM CHLORIDE 0.9% 100 ML 100 ML IV SCH (09:45)
[2021-03-21] MEDS: METOPROLOL TARTRATE 25 MG TAB PO SCH ×2 (10:00→16:36)
[2021-03-21 10:22] VITALS: BP 140/50
[2021-03-21] MEDS: BALSAM PERU/CASTOR OIL 60 GM OINT...G. TP SCH (14:01)
[2021-03-21 18:03] LABS: ANION GAP 14.1 mmol/L (8-16); CALCIUM 7.5 mg/dL (8.4-10.2); CREATININE, SERUM 2.09 mg/dL (0.72-1.25); POTASSIUM 3.1 mmol/L (3.5-5.1)
[2021-03-21 19:50] VITALS: BP 135/77
[2021-03-21] MEDS ORDERED: POTASSIUM CHLORIDE IV ONE (20:00)
[2021-03-21] MEDS ORDERED: SODIUM CHLORIDE 0.9% IV ONE (20:00)
[2021-03-21] MEDS: ATORVASTATIN 20 MG TAB PO SCH (22:47)
[2021-03-22] VITALS (7 sets, daily range): BP systolic 117–136; BP diastolic 52–87
[2021-03-22] MEDS ORDERED: BISACODYL 5 MG TAB EC PO STA (00:03)
[2021-03-22] MEDS ORDERED: BISACODYL 10 MG SUPP PR ONE (00:15)
[2021-03-22] MEDS ORDERED: IRON-VITAMIN-MINERAL CAPSULE PO SCH (01:15)
[2021-03-22] MEDS ORDERED: BISACODYL 5 MG TAB EC PO ONE (01:15)
[2021-03-22] MEDS: LEVOTHYROXINE SODIUM 100 MCG TAB PO SCH (05:12)
[2021-03-22] MEDS: IPRATROPIUM BROMIDE 0.02% 2.5 ML NEB NEB SCH ×3 (07:04→21:05)
[2021-03-22] MEDS: HYDROCORTISONE ACETATE 25 MG/SUPP.RECT SUPP RC SCH ×2 (08:43→16:52)
[2021-03-22] MEDS: BALSAM PERU/CASTOR OIL 60 GM OINT...G. TP SCH (08:43)
[2021-03-22] MEDS: OYST-CAL-D 500MG TABLET PO SCH (08:43)
[2021-03-22] MEDS: IRON-VITAMIN-MINERAL CAPSULE PO SCH (08:43)
[2021-03-22] MEDS: METOPROLOL TARTRATE 25 MG TAB PO SCH ×2 (08:43→16:53)
[2021-03-22] MEDS: MAGNESIUM HYDROXIDE 30 ML UDC PO SCH (08:43)
[2021-03-22] MEDS: LUBIPROSTONE 24 MCG CAP PO SCH ×2 (08:43→16:52)
[2021-03-22] MEDS: CHOLECALCIFEROL 400 UNIT TAB PO SCH (08:43)
[2021-03-22] MEDS ORDERED: IPRATROPIU0.2 MG/1 M NEB (10:37)
[2021-03-22] MEDS ORDERED: LOPRESSOR25 MG PO (10:37)
[2021-03-22] MEDS ORDERED: AMITIZA24 MCG PO (10:37)
[2021-03-22] MEDS ORDERED: MILK OF MA400 MG/5 M PO (10:37)
[2021-03-22 14:38] LABS: BODY FLUID APPEARANCE SL.CLOUDY; BODY FLUID COLOR YELLOW; BODY FLUID TYPE PLEURAL
[2021-03-22 14:39] LABS: RBC,BODY FLUID 1000 cells/uL; WBC,BODY FLUID 346 cells/uL
[2021-03-22 16:16] LABS: EOSINOPHILS,BODY FLUID 2 %; LYMPHOCYTES,BODY FLUID 3 %; MONO/MACROPHG,BODY FLUID 92 %; OTHER CELLS,BODY FLUID 3 %
[2021-03-22 18:31] LABS: ANION GAP 13.4 mmol/L (8-16); CALCIUM 7.5 mg/dL (8.4-10.2); CREATININE, SERUM 3.45 mg/dL (0.72-1.25)
[2021-03-22 18:35] LABS: POTASSIUM 2.4 mmol/L (3.5-5.1)
[2021-03-22] MEDS ORDERED: SODIUM CHLORIDE 0.9% IV ONE (20:30)
[2021-03-22] MEDS ORDERED: POTASSIUM CHLORIDE IV ONE (20:30)
[2021-03-22] MEDS: ATORVASTATIN 20 MG TAB PO SCH (22:08)
[2021-03-23] VITALS (9 sets, daily range): BP systolic 99–131; BP diastolic 50–71
[2021-03-23 05:03] LABS: CALCIUM IONIZED 1.1 mmol/L (1.09-1.30)
[2021-03-23 05:25] LABS: CALCIUM 7.3 mg/dL (8.4-10.2); CREATININE, SERUM 3.77 mg/dL (0.72-1.25)
[2021-03-23] MEDS: IPRATROPIUM BROMIDE 0.02% 2.5 ML NEB NEB SCH ×2 (07:10→14:03)
[2021-03-23] MEDS: LEVOTHYROXINE SODIUM 100 MCG TAB PO SCH (08:01)
[2021-03-23] MEDS ORDERED: POTASSIUM CHLORIDE 20MEQ/100ML 200 ML IV ONE (08:30)
[2021-03-23] MEDS: IRON-VITAMIN-MINERAL CAPSULE PO SCH (08:46)
[2021-03-23] MEDS: METOPROLOL TARTRATE 25 MG TAB PO SCH ×2 (08:46→16:25)
[2021-03-23] MEDS: LUBIPROSTONE 24 MCG CAP PO SCH ×2 (08:46→16:24)
[2021-03-23] MEDS: CHOLECALCIFEROL 400 UNIT TAB PO SCH (08:47)
[2021-03-23] MEDS: OYST-CAL-D 500MG TABLET PO SCH (08:47)
[2021-03-23] MEDS: MAGNESIUM HYDROXIDE 30 ML UDC PO SCH (08:47)
[2021-03-23] MEDS: HYDROCORTISONE ACETATE 25 MG/SUPP.RECT SUPP RC SCH ×2 (08:48→16:30)
[2021-03-23] MEDS: BALSAM PERU/CASTOR OIL 60 GM OINT...G. TP SCH (08:48)
[2021-03-23] MEDS ORDERED: MIDODRINE 2.5 MG TAB PO PRN ×2 (10:30→10:45)
[2021-03-23] MEDS ORDERED: SODIUM CHLORIDE 0.9% 100 ML ONE (11:10)
[2021-03-23] MEDS: ACETAMINOPHEN 325 MG TAB PO PRN (14:03)
[2021-03-23 15:05] LABS: ANION GAP 11.6 mmol/L (8-16); CREATININE, SERUM 2.03 mg/dL (0.72-1.25); POTASSIUM 3.6 mmol/L (3.5-5.1)
[2021-03-23 15:09] LABS: CALCIUM 6.9 mg/dL (8.4-10.2)
[2021-03-23] MEDS ORDERED: CALCIUM GLUCONATE 10% INJ 4.65 MEQ in SODIUM CHLORIDE 0.9% 50ML 50 ML IV ONE (15:30)
[2021-03-23] MEDS ORDERED: MIDODRINE HCL 5 MG TABLET PO SCH (17:00)
[2021-03-23] MEDS ORDERED: APIXAB 2.5 MG TABLET PO SCH (17:00)
[2021-03-23] MEDS ORDERED: MIDODRINE 2.5 MG TAB PO SCH (17:00)
[2021-03-23] MEDS: ATORVASTATIN 20 MG TAB PO SCH (21:30)
== END 2021-03-23 23:35 | DRG 186 ==
LOC: ER 14:10 → ERHOLD 19:52 → MED/SURG3 23:39
PROVIDERS: ADMIT Internal Medicine; ATTEND Internal Medicine
PROC: 0W993ZZ Drainage of Right Pleural Cavity, Percutaneous Approach (ICD-10-PCS; 2021-03-09)
PROC: 5A1D70Z Performance of Urinary Filtration, Intermittent, Less than 6 Hours Per Day (ICD-10-PCS; 2021-03-09)
PROC: 0W993ZZ Drainage of Right Pleural Cavity, Percutaneous Approach (ICD-10-PCS; 2021-03-12)
PROC: 0B9F8ZX Drainage of Right Lower Lung Lobe, Via Natural or Artificial Opening Endoscopic, Diagnostic (ICD-10-PCS; 2021-03-19)
PROC: 0BD68ZX Extraction of Right Lower Lobe Bronchus, Via Natural or Artificial Opening Endoscopic, Diagnostic (ICD-10-PCS; 2021-03-19)
PROC: 0W993ZZ Drainage of Right Pleural Cavity, Percutaneous Approach (ICD-10-PCS; principal; 2021-03-21)
DX: J90 Pleural effusion, not elsewhere classified (principal); J18.9 Pneumonia, unspecified organism; N18.6 End stage renal disease; I50.33 Acute on chronic diastolic (congestive) heart failure; J96.01 Acute respiratory failure with hypoxia; J98.19 Other pulmonary collapse; K56.7 Ileus, unspecified; I13.2 Hypertensive heart and chronic kidney disease with heart failure and with stage 5 chronic kidney disease, or end stage renal disease; J44.0 Chronic obstructive pulmonary disease with (acute) lower respiratory infection; J44.1 Chronic obstructive pulmonary disease with (acute) exacerbation; N39.0 Urinary tract infection, site not specified; E87.6 Hypokalemia; K80.20 Calculus of gallbladder without cholecystitis without obstruction; I25.10 Atherosclerotic heart disease of native coronary artery without angina pectoris; I49.9 Cardiac arrhythmia, unspecified; D63.8 Anemia in other chronic diseases classified elsewhere; E03.9 Hypothyroidism, unspecified; R19.7 Diarrhea, unspecified; E83.51 Hypocalcemia; D63.1 Anemia in chronic kidney disease; E86.1 Hypovolemia; N25.0 Renal osteodystrophy; Z99.2 Dependence on renal dialysis; Z91.15 Patient's noncompliance with renal dialysis; H40.9 Unspecified glaucoma; E11.22 Type 2 diabetes mellitus with diabetic chronic kidney disease; J44.9 Chronic obstructive pulmonary disease, unspecified; Z20.822 Contact with and (suspected) exposure to COVID-19; Z74.01 Bed confinement status; Z87.891 Personal history of nicotine dependence; K59.81 Ogilvie syndrome; K31.9 Disease of stomach and duodenum, unspecified
CPT/HCPCS: 31623; 32555; 36415; 71045; 71046; 71250; 74018; 74176; 74230; 74470; 76700; 80048; 80053; 80061; 82550; 82553; 82728; 82945; 82948; 83540; 83605; 83615; 83735; 83970; 84100; 84132; 84157; 84443; 84466; 84484; 85025; 85610; 86704; 86706; 87040; 87070; 87102; 87116; 87205; 87206; 87335; 87340; 88112; 88305; 89051; 93005; 93306; 94640; 94667; 94668; 94669; 96360; 97139; 99251; 99284; J0330; J0456; J0610; J0696; J1644; J1756; J2001; J2405; J3480; J7030; J7050; U0002